=== PATIENT | male | born 1975 | race Caucasian/White ===

== ENCOUNTER → 2020-08-27 | Outpatient (CLI) | payer BC, OTHER | LOC: SLEEP 21:30 | DX: R06.83 Snoring (principal); R53.83 Other fatigue; R42 Dizziness and giddiness; R10.13 Epigastric pain; M54.5 Low back pain; R91.1 Solitary pulmonary nodule; G47.33 Obstructive sleep apnea (adult) (pediatric); G47.26 Circadian rhythm sleep disorder, shift work type | CPT/HCPCS: 95810 ==

== ENCOUNTER 2021-02-03 00:31 | Emergency (ER) | payer BC, OTHER ==
[2021-02-03 03:47] LABS: HEMOGLOBIN 14.5 gm/dl (14.0-17.5); RED BLOOD COUNT 4.58 M/UL (4.20-5.50); WHITE BLOOD COUNT 7.9 K/UL (4.5-11.0)
[2021-02-03 04:29] LABS: BUN/CREATININE RATIO 13 (0-10)
== END 2021-02-03 11:35 | disposition home or self-care (01) ==
LOC: ER1 00:31
PROVIDERS: Physician Assistant
DX: R07.89 Other chest pain (principal); R42 Dizziness and giddiness; I10 Essential (primary) hypertension
CPT/HCPCS: 70450; 71045; 80053; 81001; 82550; 82553; 83874; 83880; 84484; 85025; 85610; 85730; 93005; 99285

== ENCOUNTER → 2021-03-25 | Outpatient (CLI) | payer BC, OTHER | LOC: HEART CORB 12:45 | DX: R07.89 Other chest pain (principal) ==

== ENCOUNTER → 2021-12-17 | Outpatient (CLI) | payer BC, OTHER | LOC: SLEEP 13:52 | DX: G47.33 Obstructive sleep apnea (adult) (pediatric) (principal); G47.26 Circadian rhythm sleep disorder, shift work type | CPT/HCPCS: 95811 ==